=== PATIENT | female | born 1990 | race Caucasian/White ===

== ENCOUNTER 2021-11-20 06:06 | Inpatient (IN) | payer OTHER ==
[2021-11-20] MEDS ORDERED: Ondansetron PF 4 MG/2 ML Vial IVP PRN ×3 (06:21→11:44)
[2021-11-20] MEDS ORDERED: hydrALAZINE 20 MG/ML VIAL SLOW IVP PRN ×2 (06:21→11:44)
[2021-11-20] MEDS ORDERED: Lidocaine 1% (PF) 30 ML VIAL SC PRN (06:21)
[2021-11-20] MEDS ORDERED: Ibuprofen 800 MG TAB PO PRN (06:21)
[2021-11-20] MEDS ORDERED: Promethazine HCl 25 MG/ML VIAL IM PRN ×2 (06:21→07:22)
[2021-11-20] MEDS ORDERED: Butorphanol Tartrate 1 MG/ML VIAL SLOW IVP PRN (06:21)
[2021-11-20] MEDS ORDERED: Misoprostol 200 MCG TAB PR PRN (06:21)
[2021-11-20] MEDS ORDERED: HYDROcodone/Acetaminophen 5/325 mg Tablet PO PRN ×4 (06:21→11:44)
[2021-11-20] MEDS ORDERED: Diphenoxylate HCl/Atropine Tablet PO PRN ×2 (06:21)
[2021-11-20] MEDS ORDERED: Carboprost 250 MCG/ML AMP IM PRN (06:21)
[2021-11-20] MEDS ORDERED: Methylergonovine 0.2 MG/ML VIAL IM PRN ×2 (06:21→11:44)
[2021-11-20] MEDS ORDERED: Lactated Ringer's 1,000 ML IV SCH (06:30)
[2021-11-20 06:39] LABS: Hemoglobin 12.6 g/dL (12.0-15.5); Mean Corpuscular HGB CONC 32.8 g/dL (32.0-36.0); Mean Corpuscular Hemoglobin 30.8 pg (27.0-33.0); Mean Corpuscular Volume 93.9 fl (81.6-98.3); Mean Platelet Volume 11.2 fl (7.4-10.4); Platelet Count 153 10x3/uL (150-450); RBC Distribution Width 14.1 % (11.5-14.5); Red Blood Cell (RBC) Count 4.09 10x6/uL (3.90-5.03); White Blood Cell (WBC) Count 12.5 10x3/uL (3.5-10.5)
[2021-11-20] MEDS ORDERED: Fentanyl 2 mcg/Bup 0.1% Cadd 100 ML ONE (06:50)
[2021-11-20 07:07] VITALS: BMI 29.5
[2021-11-20 07:11] LABS: Hep B Surf Ag Non-Reactive S/CO (NonReactive)
[2021-11-20 07:12] LABS: Syphilis Antibody Nonreactive (Nonreactive); Syphilis Antibody Index 0.03 S/CO (<1.00 Non-Reactive)
[2021-11-20 07:13] LABS: HBSAg Index 0.19 S/CO (0-0.99)
[2021-11-20] MEDS ORDERED: ePHEDrine Sulfate 50 MG/10 ML VIAL SLOW IVP PRN (07:22)
[2021-11-20] MEDS ORDERED: Naloxone HCl 0.4 mg/ml Vial IVP PRN ×2 (07:22)
[2021-11-20] MEDS ORDERED: diphenhydrAMINE 50 MG/ML VIAL IVP PRN (07:22)
[2021-11-20] MEDS ORDERED: Acetaminophen 325 MG TAB PO PRN (07:22)
[2021-11-20] MEDS ORDERED: Lactated Ringer's 500 ML IV PRN (07:22)
[2021-11-20] MEDS ORDERED: Hydrocerin (Eucerin) Cream 120 gm Jar TOP PRN ×2 (07:22→20:14)
[2021-11-20] MEDS ORDERED: Communication Order-Pharmacy FS SCH (07:30)
[2021-11-20] MEDS ORDERED: Fentanyl 2 mcg/Bupivacaine 0.1% Cassette 100 ML EPIDURAL SCH (07:30)
[2021-11-20] MEDS ORDERED: Lidocaine 2% PF 5 ML VIAL ONE (08:00)
[2021-11-20] MEDS ORDERED: Bupivacaine 0.25% HCL 30 ML VIAL ONE (08:00)
[2021-11-20] MEDS: NS w/ Oxytocin 30 units 500 ML IV SCH ×2 (08:48→10:06)
[2021-11-20] MEDS ORDERED: Bisacodyl 10 MG SUPP PR PRN (11:44)
[2021-11-20] MEDS ORDERED: Misoprostol 200 MCG TAB VAG PRN (11:44)
[2021-11-20] MEDS ORDERED: NS w/ Oxytocin 30 units 500 ML IV SCH (11:44)
[2021-11-20] MEDS ORDERED: Benzocaine-Menthol 82.5 ML CAN TOP PRN (11:44)
[2021-11-20] MEDS ORDERED: Milk Of Magnesia 30 ML UDCUP PO PRN (11:44)
[2021-11-20] MEDS ORDERED: Boostrix 0.5 ML (Tdap) VIAL IM ONE (11:44)
[2021-11-20] MEDS ORDERED: Lanolin Ointment 7 GM TUBE TOP PRN (11:44)
[2021-11-20] MEDS ORDERED: Ibuprofen 800 MG TAB PO SCH (12:00)
[2021-11-20 12:35] LABS: SARS-CoV-2 NAA Rapid Test Not Detected (NotDetected)
[2021-11-20] MEDS: Ferrous Sulfate 325 MG TAB PO SCH (14:34)
[2021-11-20] MEDS: Docusate 100 MG CAP PO SCH (20:17)
[2021-11-20] MEDS: Ibuprofen 800 MG TAB PO SCH (20:18)
[2021-11-20] MEDS ORDERED: diphenhydrAMINE 12.5 MG/5 ML UDCUP PO SCH (21:00)
[2021-11-21] MEDS: Ibuprofen 800 MG TAB PO SCH (04:52)
[2021-11-21 08:48] VITALS: BP 119/73; TEMP 97.9
[2021-11-21] MEDS ORDERED: Prenatal Vitamin 1 TAB PO SCH (09:00)
[2021-11-21] MEDS: Docusate 100 MG CAP PO SCH (09:18)
[2021-11-21] MEDS: Ferrous Sulfate 325 MG TAB PO SCH (09:18)
== END 2021-11-21 13:30 | disposition home or self-care (01) | DRG 807 ==
LOC: CSHLD/OP 06:06 → CSHLD 08:45 → CSHPP 13:00
PROVIDERS: ADMIT Obstetrics & Gynecology; ATTEND Obstetrics & Gynecology
PROC: 10E0XZZ Delivery of Products of Conception, External Approach (ICD-10-PCS; principal; 2021-11-20)
DX: O80 Encounter for full-term uncomplicated delivery (principal); Z37.0 Single live birth; Z20.822 Contact with and (suspected) exposure to COVID-19; Z88.8 Allergy status to other drugs, medicaments and biological substances; Z3A.40 40 weeks gestation of pregnancy
CPT/HCPCS: 36415; 85027; 86780; 86850; 86900; 86901; 87340; J2001; J2405; J2590; J7120; S0020; U0002